=== PATIENT | female | born 1990 | race Caucasian/White ===

== ENCOUNTER 2016-11-07 19:38 | Emergency (ER) | payer OTHER ==
[~2016-11-07] VITALS: Ht 152.4 cm; Wt 56.7 kg
[2016-11-07 19:40] VITALS: BP 101/66
[2016-11-07] MEDS ORDERED: ACETAMINOPHEN 325 MG TAB ONE (19:53)
[2016-11-07] MEDS ORDERED: IBUPROFEN 600 MG TAB ONE (19:54)
--- NOTE | 2016-11-07 21:12 | NUR ---
PT TAKEN TO BED 8
--- NOTE | 2016-11-07 21:15 | NUR ---
BIBA C/O FEVER WITH BODYACHES,NAUSEA FOR 4 DAYS. SKIN IS PINK/WARM/DRY; AAOX4 WITH EVEN AND STEADY GAIT; PATIENT STATES PAIN OF 5/10 AT THIS TIME; VSS; PATIENT POSITIONED FOR COMFORT; HOB ELEVATED; BEDRAILS UP X2; BED DOWN. ER MD MADE AWARE OF PT STATUS.
--- NOTE | 2016-11-07 22:04 | NUR ---
Dr. Bustos evaluating patient at bedside.
[2016-11-07] MEDS ORDERED: KETOROLAC 60 MG/2 ML VIAL IM ONE (22:10)
--- NOTE | 2016-11-07 22:21 | NUR ---
PT RESTING COMFORTABLY ON BED, MED GIVEN, PT TOLERATED WELL.
[2016-11-07 22:45] VITALS: BP 124/72
--- NOTE | 2016-11-07 22:45 | NUR ---
Patient discharged with v/s stable. Written and verbal after care instructions given and explained. Patient alert, oriented and verbalized understanding of instructions. Ambulatory with steady gait. All questions addressed prior to discharge. ID band removed. Patient advised to follow up with PMD. Rx of MOTRIN 600MG TAB, CIPRO 500MG TAB, NORCO 5MG-325MG TAB given. Patient educated on indication of medication including possible reaction and side effects. Opportunity to ask questions provided and answered.
== END 2016-11-07 22:45 | disposition home or self-care (01) ==
LOC: MED 19:38
DX: N12 Tubulo-interstitial nephritis, not specified as acute or chronic (principal)
CPT/HCPCS: 81002; 81025; 96372; 99283; J1885

== ENCOUNTER 2020-09-13 10:39 | Emergency (ER) | payer MEDICAID, OTHER ==
[~2020-09-13] VITALS: Ht 152.4 cm; Wt 62.1 kg
[2020-09-13 10:40] VITALS: BP 114/85
--- NOTE | 2020-09-13 10:45 | NUR ---
PT ABMULATED TO BEDSIDE WITH HER 3 CHILDREN
--- NOTE | 2020-09-13 10:59 | NUR ---
29YO F C/O LEFT-SIDED BACK PAIN X 1.5 WEEKS. 8/10, PRESSURE-LIKE. ALSO REPORTS SOB AND CHEST 8/10, PRESSURE-LIKE PAIN. PER PT, SHE WAS ADMITTED FOR UTI, KIDNEY INFECTION AND BLOOD INFECTION 2 WEEKS AGO. SYMPYOMS BEGAN AFTER DISCHARGE FROM HOSPITAL. NO MEDICATIONS TAKEN. PMH: NONE MEDS: NONE NKA
--- NOTE | 2020-09-13 11:25 | NUR ---
PATIENT AMBULATED TO RESTROOM. GAIT STEADY
[2020-09-13] MEDS ORDERED: KETOROLAC 30 MG/ML VIAL IM ONE (11:35)
--- NOTE | 2020-09-13 11:44 | NUR ---
XRAY AT BEDSIDE
[2020-09-13 12:59] LABS: APPEARANCE,URINE HAZY (CLEAR); BILIRUBIN,URINE NEGATIVE (NEGATIVE); BLOOD, URINE NEGATIVE (NEGATIVE); COLOR,URINE YELLOW (YELLOW); LEUKOCYTE ESTERASE ,URINE TRACE (NEGATIVE); NITRITE, URINE NEGATIVE (NEGATIVE); UGLUCOSE NEGATIVE (NEGATIVE)
--- NOTE | 2020-09-13 13:00 | NUR ---
PATIENT SITTING COMFORTABLE IN BED ON PHONE. VITALS STABLE. WILL CONTUINE TO MONITOR
[2020-09-13 13:20] LABS: RBC,URINE NONE SEEN /HPF (0-5); WBC,URINE 0-5 /HPF (0-5)
[2020-09-13] MEDS ORDERED: NAPR-54 PO (13:34)
[2020-09-13] MEDS ORDERED: ACET-8386 PO (13:34)
[2020-09-13] MEDS ORDERED: CEPH-588 PO (13:34)
[2020-09-13] MEDS ORDERED: HYDROcodone/APAP 5/325 MG 1 TAB TAB PO ONE (13:35)
[2020-09-13] MEDS ORDERED: NITR100C7 PO (13:52)
[2020-09-13 14:06] VITALS: BP 123/78
--- NOTE | 2020-09-13 14:06 | NUR ---
Patient discharged with v/s stable. Written and verbal after care instructions given and explained. Patient alert, oriented and verbalized understanding of instructions. Ambulatory with steady gait. All questions addressed prior to discharge. ID band removed. Patient advised to follow up with PMD. Rx of MACROBID, HYDROCODONE-ACETAMINOPHEN, AND NAPROSYN given. Patient educated on indication of medication including possible reaction and side effects. Opportunity to ask questions provided and answered.
== END 2020-09-13 14:06 | disposition home or self-care (01) ==
LOC: MED 10:39
DX: N39.0 Urinary tract infection, site not specified (principal); Z98.890 Other specified postprocedural states
CPT/HCPCS: 71045; 81001; 81025; 96372; 99284; J1885